=== PATIENT | female | born 1960 | race Caucasian/White ===

== ENCOUNTER 2019-10-08 12:21 | Outpatient (CLI) | payer BC, SELFPAY ==
--- NOTE | ~2019-10-08 | MMUS_ITS ---
EXAMINATION: MM diagnostic cachorro LT w chadd, US breast LT complete HISTORY: New left breast mass, upper inner quadrant left breast TECHNIQUE: ML, MLO and cc full field and spot 3-D tomosynthesis images of the left breast were perfor med and synthetic 2-D images were generated. CAD analysis was submitted and interpreted. High resolut ion complete left breast ultrasound was performed. COMPARISON: 05/17/2019 bilateral digital screening mammogram 05/10/2018 bilateral digital diagnostic mammogram 10/04/2017 bilateral digital screening mammogram Density: There is heterogeneously dense breast tissue, which may obscure small masses. FINDINGS: MAMMOGRAPHIC FINDINGS: Incompletely circumscribed roughly 1.5 cm mass is suggested in the mid to upper inner left breast at mid depth. An approximately 3 x 6 mm circumscribed opacity is noted posteriorly in the inner mid left breast. ULTRASOUND: At 11:00 position there is a 10.4 x 15.6 x 14.0 mm sonolucency with through transmission posterior en hancement, compatible with simple cyst. No reproducible suspicious mass or shadowing is detected elsewhere. IMPRESSION: 1. Up to 1.56 cm 11:00 left breast simple cyst. No mammographic evidence of malignancy 2. Routine annual mammographic screening is recommended. BI-RADS Category 2: Benign finding(s). Reviewed, dictated and finalized at location A. IMPRESSION: 1. Up to 1.56 cm 11:00 left breast simple cyst. No mammographic evidence of malignancy 2. Routine annual mammographic screening is recommended. BI-RADS Category 2: Benign finding(s).
== END 2019-10-08 12:22 | disposition home or self-care (01) ==
PROVIDERS: Visit Provider Nurse Practitioner
DX: N63.20 Unspecified lump in the left breast, unspecified quadrant (principal)
CPT/HCPCS: 76641; 77061; 77065; G0279

== ENCOUNTER → 2020-12-05 07:54 | Outpatient (CLI) | payer BC, SELFPAY ==
--- NOTE | ~2020-12-05 | DEXA_ITS ---
Bone Density Report Name: Elizabeth Zuniga Age: 60 Sex: Female Ethnicity: White Date of : 1960 Indication: monitoring treatment; height loss; asthma or emphysema; hysterectomy; postmenopausal Referring Provider: Mary, Brooke Study: Bone densitometry was performed. Exam Date: December 05, 2020 Accession number: [id number] Bone Density: Region BMD T-score Z-score Classification AP Spine (L1-L4) 0.915 -1.2 0.3 Osteopenia Femoral Neck (Left) 0.754 -0.9 0.5 Normal Total Hip (Left) 1.009 0.5 1.6 Normal Femoral Neck (Right) 0.737 -1.0 0.3 Normal Total Hip (Right) 0.910 -0.3 0.8 Normal Total Hip Mean 0.960 0.1 1.2 Normal World Health Organization criteria for BMD impression classify patients as: Normal (T-score at or above -1.0), Osteopenia (T-score between -1.0 and -2.5), or Osteoporosis (T-score at or below -2.5). 10-year Fracture Risk: FRAX not reported because: Treated for osteoporosis Previous Exams: Region Exam Age BMD T-score BMD Change BMD Change Date g/cm2 vs Baseline vs Previous AP Spine(L1-L4) 12/05/2020 60 0.915 -1.2 0.005 -0.032* 09/17/2016 56 0.946 -0.9 0.037* 0.022 09/25/2012 52 0.924 -1.1 0.015 0.009 05/18/2010 50 0.915 -1.2 0.006 0.006 09/22/2006 46 0.909 -1.3 Total Hip(Left) 12/05/2020 60 1.009 0.5 0.097* 0.071* 09/17/2016 56 0.938 0.0 0.026 -0.058* 09/25/2012 52 0.995 0.4 0.083* 0.084* 05/18/2010 50 0.911 -0.3 -0.001 -0.001 09/22/2006 46 0.912 -0.2 Total Hip(Right) 12/05/2020 60 0.910 -0.3 0.001 0.012 09/17/2016 56 0.898 -0.4 -0.011 -0.014 09/25/2012 52 0.912 -0.2 0.003 0.050* 05/18/2010 50 0.861 -0.7 -0.047* -0.047* 09/22/2006 46 0.908 -0.3 *Denotes significance at 95% confidence level, LSC for AP Spine = 0.022 g/cm2, LSC for Total Hip = 0.027 g/cm2 Clinical Information Provided by Patient: Is being treated for osteoporosis Has used the following medications: HRT (i.e. estrogen/hormone therapy), Vitamin D, Calcium, MTV Has the following medical conditions: Asthma or Emphysema, Hysterectomy Patient maximum height was 62.0 Menopause Age: 34 No regular weight bearing exercise Drinks caffeinated beverages Onset of menses at age 14 Number of children 2
--- NOTE | ~2020-12-05 | MM_ITS ---
EXAMINATION: MM screening cachorro BI w hcadd HISTORY: Screening mammogram TECHNIQUE: Craniocaudal and mediolateral oblique 3-D tomosynthesis images were obtained and synthetic 2-D images were generated. CAD analysis was submitted and interpreted. COMPARISON: 10/04/2019 diagnostic left mammogram and complete left breast ultrasound 05/17/2019 bilateral digital screening mammogram 05/10/2018 bilateral diagnostic digital mammogram 10/04/2017 bilateral digital screening mammogram BREAST PARENCHYMAL COMPOSITION: The breasts are heterogeneously dense, which may obscure small masses . FINDINGS: There is no evidence of suspicious mass, calcification, or architectural distortion to sugg est malignancy in either breast. There has been no suspicious interval change. IMPRESSION: 1. No mammographic evidence of malignancy. 2. Recommend routine screening mammography in one year. BI-RADS Category 1: Negative Reviewed, dictated and finalized at location A.
== END ==
PROVIDERS: Visit Provider Nurse Practitioner
DX: Z12.31 Encounter for screening mammogram for malignant neoplasm of breast (principal); M81.0 Age-related osteoporosis without current pathological fracture; M85.88 Other specified disorders of bone density and structure, other site
CPT/HCPCS: 77063; 77067; 77080

== ENCOUNTER → 2022-10-07 07:26 | Outpatient (CLI) | payer BC, SELFPAY ==
--- NOTE | ~2022-10-07 | MM_ITS ---
EXAMINATION: MM screening cachorro BI w chadd HISTORY: Screening TECHNIQUE: Craniocaudal and mediolateral oblique 3-D tomosynthesis images were obtained and synthetic 2-D images were generated. CAD analysis was submitted and interpreted. COMPARISON: Comparison to multiple prior studies sequentially, with oldest reviewed study dated 10/2016. BREAST PARENCHYMAL COMPOSITION: The breasts are extremely dense, which lowers the sensitivity of mamm ography FINDINGS: There is no evidence of suspicious mass, calcification, or architectural distortion to sugg est malignancy in either breast. There has been no suspicious interval change. IMPRESSION: 1. No mammographic evidence of malignancy. 2. Recommend routine screening mammography in one year. BI-RADS Category 1: Negative Reviewed, dictated and finalized at location A.
== END ==
PROVIDERS: PCP Family Medicine; Visit Provider Nurse Practitioner
DX: Z12.31 Encounter for screening mammogram for malignant neoplasm of breast (principal)
CPT/HCPCS: 77063; 77067

== ENCOUNTER 2024-02-16 12:34 | Outpatient (CLI) | payer BC, SELFPAY ==
--- NOTE | ~2024-02-16 | DEXA_ITS ---
Bone Density Report Name: BUSTER RDZ Age: 63 Sex: Female Ethnicity: White Date of : 1960 Indication: postmenopausal; screening for osteoporosis; height loss; inflammatory bowel disease; history of glucocorticoids; hysterectomy; Referring Provider: ERLINDA, RADHA Study: Bone densitometry was performed. Exam Date: February 16, 2024 Accession number: [id number] Bone Density: Region BMD T-score Z-score Classification AP Spine(L1-L4) 0.905 -1.3 0.5 Osteopenia Femoral Neck (Left) 0.707 -1.3 0.2 Osteopenia Total Hip (Left) 1.061 1.0 2.2 Normal Femoral Neck (Right) 0.712 -1.2 0.3 Osteopenia Total Hip (Right) 1.001 0.5 1.7 Normal Total Hip Mean 1.031 0.8 2.0 Normal World Health Organization criteria for BMD impression classify patients as: Normal (T-score at or above -1.0), Osteopenia (T-score between -1.0 and -2.5), or Osteoporosis (T-score at or below -2.5). 10-year Fracture Risk(1): Major Osteoporotic Fracture 12% Hip Fracture 1.2% Reported Risk Factors: [place] (), Neck BMD=0.707, BMI=35.5, glucocorticoids (1) FRAX(R) Version 3.08. Fracture probability calculated for an untreated patient. Fracture probability may be lower if the patient has received treatment. Clinical Information Provided by Patient: Has taken Glucocorticoids Has used the following medications: Vitamin D, Calcium Has the following medical conditions: Inflammatory bowel diseases, Hysterectomy, SESONAL ASTHMA Patient maximum height was 62.0 Menopause Age: 34 No regular weight bearing exercise Drinks caffeinated beverages Onset of menses at age 15 Number of children 2 Impression: The patient has low bone mass, based on the Total Spine T-score. The patient has an estimated ten-year risk of hip fracture of 1.2% and an estimated ten-year risk of major fracture of 12%, based on the WHO FRAX algorithm. The patient has risk factors, including: history of glucocorticoid therapy. Discussion: BONE DENSITY IS LOW AT ONE OR MORE SKELETAL SITES. This patient's lowest T-score is low at one or more skeletal sites. It meets the World Health Organization's (WHO) criteria for ?low bone mass? (T-score between -1.0 and -2.5). The patient's 10-year risk of fracture as calculated by FRAX is less than the threshold where pharmacological therapy is recommended by the National Osteoporosis Foundation (NOF). However, all treatment decisions require clinical judgment and consideration of individual patient factors, including patient preferences, comorbidities, previous drug use, risk factors not captured in the FRAX model (e.g., frailty, falls, vitamin D deficiency, increased bone turnover, interval significant decline in bone density) and possible under or overestimation of fracture risk by FRAX. The patien
--- NOTE | ~2024-02-16 | MM_ITS ---
EXAMINATION: MM screening cachorro BI w chadd HISTORY: Screening TECHNIQUE: Craniocaudal and mediolateral oblique 3-D tomosynthesis images were obtained and synthetic 2-D images were generated. CAD analysis was submitted and interpreted. COMPARISON: Comparison to multiple prior studies sequentially, with oldest reviewed study dated 10/04. BREAST PARENCHYMAL COMPOSITION: Dense: The breasts are heterogeneously dense, which may obscure small masses FINDINGS: There is no evidence of suspicious mass, calcification, or architectural distortion to sugg est malignancy in either breast. There has been no suspicious interval change. IMPRESSION: 1. No mammographic evidence of malignancy. 2. Recommend routine screening mammography in one year. BI-RADS Category 1: Negative Reviewed, dictated and finalized at location B.
== END 2024-02-16 12:35 | disposition home or self-care (01) ==
PROVIDERS: PCP Family Medicine; Visit Provider Nurse Practitioner
DX: Z12.31 Encounter for screening mammogram for malignant neoplasm of breast (principal); M85.89 Other specified disorders of bone density and structure, multiple sites; Z13.820 Encounter for screening for osteoporosis
CPT/HCPCS: 77063; 77067; 77080